=== PATIENT | female | born 1955 | race Caucasian/White ===

== ENCOUNTER → 2016-11-04 | Emergency (ER) | payer BC ==
[~2016-11-04] VITALS: Wt 72.7 kg
[~2016-11-04] MED LIST: AMLO-147 PO; BENA10TA48 PO; BENA1TAB13 PO; BENZ100C70 PO; HYDR473S12 PO; KETOROLAC 30 MG INJ IV STA; METO25TA4 PO; ONDA4TAB8 PO; ONDANSETRON 4 MG INJ IV STA; PROM6.2514 PO; SOD CHLORIDE 0.9% 1,000 ML IV STA
--- NOTE | 2016-11-04 17:50 | RADRPT ---
PROCEDURE: XR Chest. CLINICAL INDICATION: Patient experiencing Shortness of Breath. TECHNIQUE: Single AP portable chest. COMPARISON: None FINDINGS: The cardiomediastinal silhouette is within normal limits. The lungs are clear without pleural effus ion or focal consolidation. No pneumothorax. The osseous structures and soft tissues are unremarkab le. IMPRESSION: No evidence for active cardiopulmonary disease. RPTAT:AAJJ Sindy Jim Physician Date Time Electronically viewed and signed by Sindy Jim Physician on 11/04/2016 17:49 MARCELLE/
[2016-11-04 18:02] LABS: BASOPHILS % 0.2 % (0.0-2.0); EOSINOPHILS % 0.8 % (0.0-7.0); HEMATOCRIT 46.2 % (37.0-47.0); HEMOGLOBIN 15.8 g/dl (12.0-16.0); LYMPHOCYTES # 1.4 10^3/ul (0.8-2.9); MEAN CORPUSCULAR HEMOGLOBIN 31.5 pg (29.0-33.0); MEAN CORPUSCULAR HGB CONC 34.2 g/dl (32.0-37.0); MEAN PLATELET VOLUME 7.4 fl (7.4-10.4); MONOCYTE # 0.6 10^3/ul (0.3-0.9); MONOCYTES % 11.5 % (0.0-11.0); NEUTROPHIL # 3.6 10^3/ul (1.6-7.5); NEUTROPHILS % 63.5 % (39.0-77.0); PLATELET COUNT 251 10^3/UL (140-440); RED BLOOD COUNT 5.03 10^6/ul (4.20-5.40); RED CELL DISTRIBUTION WIDTH 12.9 % (11.5-14.5); UNCORRECTED WBC 5.6 10^3/ul (4.8-10.8); WHITE BLOOD COUNT 5.6 10^3/ul (4.8-10.8)
[2016-11-04 18:03] LABS: CONDITION 1
[2016-11-04 18:11] LABS: ALBUMIN 4.5 g/dl (3.3-4.9); CHLORIDE 99 mmol/L (97-110)
[2016-11-04 18:12] LABS: POTASSIUM 3.6 mmol/L (3.5-5.1); SODIUM 143 mmol/L (135-144)
[2016-11-04 18:14] LABS: ALBUMIN/GLOBULIN RATIO 1.15; ALKALINE PHOSPHATASE 74 IU/L (42-121); ANION GAP 19 (8-16); ASPARTATE AMINO TRANSFERASE 91 IU/L (15-46); BILIRUBIN,INDIRECT 0.4 mg/dl (0-1.1); BILIRUBIN,TOTAL 0.4 mg/dl (0.2-1.3); BLOOD UREA NITROGEN 15 mg/dl (7-20); CARBON DIOXIDE 29 mmol/L (21-31); CREATININE 0.74 mg/dl (0.44-1.00); TOTAL PROTEIN 8.4 g/dl (6.1-8.1)
[2016-11-04 18:15] LABS: ALANINE AMINOTRANSFERASE 92 IU/L (13-69); CALCIUM 9.5 mg/dl (8.4-10.2); GLUCOSE 114 mg/dl (70-220)
[2016-11-04 18:28] LABS: TROPONIN-I < 0.012 ng/ml (0.00-0.12)
--- NOTE | 2016-11-04 18:39 | ERD ---
ER Documentation Chief Complaint Date/Time DATE: 11/04/16 TIME: 18:31 Chief Complaint cough fever and chest pain for the past few days. no diaphoresis HPI Patient is a 60-year-old female who presents with cough, fever, congestion, and chest discomfort for the last 2-3 days. She states that she does not know how high her fever went. Her cough has been dry and nonproductive. She developed generalized body aches today. She has not tried any [id number] medications. Nothing seems to make this better or making this worse. She denies any sick contacts or travel out of the country. She denies any sore throat, otalgia, rhinorrhea, headache, nausea, vomiting, diarrhea, abdominal pain, dysuria, hematuria, abnormal rashes, bleeding, or bruising. ROS All systems reviewed and are negative except as per history of present illness. Medications Home Meds Reported Medications Metoprolol Tartrate* (Lopressor*) 25 Mg Tablet, 25 MG PO BID, #60 TAB 10/20/16 Benazepril Hcl* (Benazepril Hcl*) 10 Mg Tablet, 10 MG PO DAILY, #30 TAB 10/20/16 Allergies Allergies: Coded Allergies: No Known Allergy (Unverified , 10/20/16) PMhx/Soc History of Surgery: No Anesthesia Reaction: No Hx Neurological Disorder: Yes Hx Respiratory Disorders: No Hx Cardiac Disorders: No Hx Psychiatric Problems: No Hx Miscellaneous Medical Probl: No Hx Alcohol Use: No Hx Substance Use: No Hx Tobacco Use: No Smoking Status: Never smoker FmHx Family History: diabetes Physical Exam Vitals Vital Signs Date Time Temp Pulse Resp B/P Pulse Ox O2 Delivery O2 Flow Rate FiO2 11/04/16 18:24 93 20 98 Nasal Cannula 2.0 11/04/16 17:54 Nasal Cannula 2 11/04/16 12:56 100.8 126 20 179/119 97 Physical Exam Const: Well-developed well-nourished female lying in the bed with no evidence for respiratory distress Head: Atraumatic normocephalic Eyes: Normal Conjunctiva ENT: Normal External Ears, Nose and Mouth. Neck: Full range of motion..~ No meningismus. Resp: Clear to auscultation bilaterally Cardio: Regular rate and rhythm, no murmurs, mild tenderness to palpation anterior chest wall which reproduces her chest discomfort Abd: Soft, non tender, non distended. Normal bowel sounds Skin: No petechiae or rashes Back: No midline or flank tenderness Ext: No cyanosis, or edema, no tenderness to palpation of the calf negative Homans sign Neur: Awake and alert Psych: Normal Mood and Affect Result Diagram: 11/04/16 1750 11/04/16 1750 Results 24 hrs Laboratory Tests Test 11/04/16 17:50 Alanine Aminotransferase (ALT/SGPT) 92IU/L Albumin 4.5g/dl Albumin/Globulin Ratio 1.15 Alkaline Phosphatase 74IU/L Anion Gap 19 Aspartate Amino Transf (AST/SGOT) 91IU/L Basophils # 0.010^3/ul Basophils % 0.2% Blood Urea Nitrogen 15mg/dl Calcium Level 9.5mg/dl Carbon Dioxide Level 29mmol/L Chloride Level 99mmol/L Creatinine 0.74mg/dl Direct Bilirubin 0.00mg/dl Eosinophils # 0.010^3/ul Eosinophils % 0.8% Globulin 3.90g/dl Glucose Level 114mg/dl Hematocrit 46.2% Hemoglobin 15.8g/dl Indirect Bilirubin 0.4mg/dl Lymphocytes # 1.410^3/ul Lymphocytes % 24.0% Mean Corpuscular Hemoglobin 31.5pg Mean Corpuscular Hemoglobin Concent 34.2g/dl Mean Corpuscular Volume 92.0fl Mean Platelet Volume 7.4fl Monocytes # 0.610^3/ul Monocytes % 11.5% Neutrophils # 3.610^3/ul Neutrophils % 63.5% Nucleated Red Blood Cells # 0.010^3/ul Nucleated Red Blood Cells % 0.0/100WBC Platelet Count 04164^3/UL Potassium Level 3.6mmol/L Red Blood Count 5.0310^6/ul Red Cell Distribution Width 12.9% Sodium Level 143mmol/L Total Bilirubin 0.4mg/dl Total Protein 8.4g/dl Troponin I < 0.012ng/ml White Blood Count 5.610^3/ul Current Medications Medications (Trade) Dose Ordered Sig/Gopi Route PRN Reason Start Time Stop Time Status Last Admin Dose Admin Sodium Chloride (NS) 1,000 ml @ 1,000 mls/hr Q1H STAT IV 11/04/16 17:25 1/6/17 18:24 DC 11/04/16 18:10 Ketorolac Tromethamine (Toradol) 30 mg ONCE STAT IV 11/04/16 17:25 11/04/16 17:28 DC 11/04/16 18:10 Ondansetron HCl (Zofran Inj) 4 mg ONCE STAT IV 11/04/16 17:25 11/04/16 17:28 DC 11/04/16 18:11 Procedures/MDM EKG: Rate/Rhythm: Normal Sinus Rhythm at 120 bpm QRS, ST, T-waves: No changes consistent w/ acute ischemia Impression: No evidence of ischemia or arrhythmia 1834: Patient's heart rate has come down nicely with IV fluids and Tylenol. Her oxygen sats remained around 98-99% on room air. She does not exhibit any signs for respiratory distress. It appears she stable for discharge with outpatient treatment and follow-up. Departure Diagnosis: Primary Impression: Upper respiratory infection with cough and congestion Additional Impressions: Fever Fever type: unspecified Qualified Code: R50.9 - Fever, unspecified fever cause Hypertension Hypertension type: essential hypertension Qualified Code: I10 - Essential hypertension Condition: Good Patient Instructions: Fever Control (Adult), High Blood Pressure (Hypertension) , Uri, Viral, No Abx (Adult) Additional Instructions: Take the medications as prescribed and schedule a follow-up appointment with your primary care physician for next week for recheck. Take Tylenol or Motrin as needed for fever or body aches. Return to the emergency department at any time if you develop any new or worsening symptoms. SCOTT CASAS Nov 04, 2016 18:38
[2016-11-04 19:01] VITALS: BP 139/90; PULSE 90; RESP 27; TEMP 99
== END | disposition home or self-care (01) ==
LOC: E/R 12:42
DX: J06.9 Acute upper respiratory infection, unspecified (principal); R50.9 Fever, unspecified; I10 Essential (primary) hypertension; R09.81 Nasal congestion
CPT/HCPCS: 36415; 71010; 80053; 84484; 85025; 87040; 87400; 96374; 96375; J1885; J2405; J7030; Z7502